=== PATIENT | male | born 1995 | race Caucasian/White ===

== ENCOUNTER 2016-12-22 22:31 | Emergency (ER) | payer OTHER ==
[~2016-12-22] VITALS: Ht 177.8 cm; Wt 96.7 kg
[2016-12-22 22:35] VITALS: TEMP 36.5; Ht 177.8 cm; Wt 96.7 kg
[2016-12-22] MEDS ORDERED: XYLOCAINE 1%/SOD BICARB 20 ML VIAL INFIL ONE (23:00)
[2016-12-22] MEDS ORDERED: CEFTRIAXONE SOD 350MG/ML 1 GM VIAL IM ONE (23:15)
[2016-12-22] MEDS ORDERED: BUPIVACAINE 0.5 % 5 MG/1 ML MPF 30ML VIAL INFIL ONE (23:15)
--- NOTE | 2016-12-22 23:17 | DIAGNOSTIC IMAGING REPORT ---
LEFT FIFTH FINGER 3 VIEWS HISTORY: left 5th finger laceration COMPARISON: None. FINDINGS: Soft tissue laceration at the distal tip of the left fifth finger. There is also a transverse fracture at the distal tuft of the left fifth finger. This demonstrates 3 mm of volar displacement and mild distraction. No dislocation. No radiopaque foreign bodies. IMPRESSION: Mildly displaced fracture at the distal tuft of the left fifth finger with an associated soft tissue laceration. Electronically signed by: Raul Guardado M.D. 12/22/2016 11:15 PM Dictated Date/Time: 12/22/2016 11:14 PM
[2016-12-22] MEDS ORDERED: CEPHALEXIN 500MG HOME PACK 1 EA BTL PO ONE (23:45)
[2016-12-22] MEDS ORDERED: NORCO 5/325MG HOME PACK PO ONE (23:45)
[2016-12-22] MEDS ORDERED: HYDR-5688 PO (23:50)
[2016-12-22] MEDS ORDERED: CEPH500C PO (23:50)
[2016-12-23 00:25] VITALS: BP 128/80; PULSE 98; O2SAT 99
--- NOTE | 2016-12-23 03:28 | EMERGENCY ROOM VISIT NOTE ---
History First contact with patient: 22:37 Chief Complaint: LACERATION/CUT (SUT/DERMABOND) Stated Complaint: FINGER TIP LAC PINKY Nursing Triage Summary: Pt states got 5th left finger pinched between lumbar and a metal bar. States tetanus is UTD. Happened approx 20 mins [employer]. History of Present Illness The patient is a 21 year old male who presents to the Emergency Room with complaints of injury to his left fifth finger at work approximately 20 minutes ago. The patient works at [employer] and states that he got his finger pinched between a large piece of wood and a metal bar. The patient was able to quickly free his finger and noticed a considerable laceration to his finger. The patient presents now for further evaluation. He states that he is up-to-date on his tetanus. He does have sensation to the very end of his fingertip. He does not report injury to his hand or elsewhere. There is slow bleeding. He rates his discomfort a 7/10. Review of Systems More than 10 systems were reviewed and otherwise negative with the exception of history of present illness. Past Medical/Surgical History No chronic medical disease Family History No pertinent family history Social History Smoking Status: Never Smoker Occupation Status: unemployed Current/Historical Medications Scheduled Cephalexin Monohydrate (Keflex), 500 MG PO TID Scheduled PRN Hydrocodone/Acetaminophen 5MG/325MG ([place] 5MG/325MG), 1-2 TABLET PO Q6 PRN for Pain Physical Exam Vital Signs Date Time Temp Pulse Resp B/P (MAP) Pulse Ox O2 Delivery O2 Flow Rate FiO2 12/23/16 00:25 98 18 128/80 99 12/22/16 22:35 36.5 100 18 130/85 99 Room Air Pain Rating (0-10): 0 Physical Exam VITALS: Vitals are noted on the nurse's note and reviewed by myself. Vital signs stable. GENERAL: Well-developed, well-nourished, white male, who is in no acute distress and resting comfortably. Patient is cooperative with the examination. HEART: Regular rate and rhythm without murmurs gallops or rubs. LUNGS: Clear to auscultation bilaterally without wheezes, rales or rhonchi. No retractions or accessory muscle use. MUSCULOSKELETAL: There is a laceration to the distal end of the left fifth finger. This measures approximately 2.5 cm in total length. The laceration is nearly circumferential with tissue intact along the lateral aspect. The patient does have sensation to the distal tip. The fingernail is not lacerated , however the laceration does run just underneath the distal end of the fingernail. The patient is able to flex and extend the finger. No other significant injury noted. Medical Decision & Procedures ER Provider Diagnostic Interpretation: LEFT FIFTH FINGER 3 VIEWS HISTORY: left 5th finger laceration COMPARISON: None. FINDINGS: Soft tissue laceration at the distal tip of the left fifth finger. There is also a transverse fracture at the distal tuft of the left fifth finger. This demonstrates 3 mm of volar displacement and mild distraction. No dislocation. No radiopaque foreign bodies. IMPRESSION: Mildly displaced fracture at the distal tuft of the left fifth finger with an associated soft tissue laceration. Medications Administered Medications (Trade) Dose Ordered Sig/[place] Route Start Time Stop Time Status Last Admin Dose Admin Ceftriaxone Sodium (Rocephin Im) 1,000 mg NOW ONCE IM 12/22/16 23:15 12/22/16 23:16 DC 12/23/16 00:20 1,000 MG Cephalexin Monohydrate (Keflex 500MG Home Pack) 1 homepack NOW ONCE PO 12/22/16 23:45 12/22/16 23:46 DC 12/23/16 00:20 1 HOMEPACK Acetaminophen/ Hydrocodone Bitart ([place] 5/325mg Home Pack) 1 homepack UD ONCE PO 12/22/16 23:45 12/22/16 23:46 DC 12/23/16 00:20 1 HOMEPACK Procedure Laceration repair. Patient elects to have their laceration repaired. Verbal consent was obtained to perform the procedure. There is an abundance of materials available for the procedure. Patient is not allergic to latex. Using sterile technique the wound was cleaned with Betadine. The area was sterilely draped. 5 ml of a 50:50 mixture of 0.5% Sensorcaine and 1% buffered lidocaine was used to anesthetize the left fifth finger in a digital block fashion. Once the patient was anesthetized, the wound was copiously irrigated under pressure with sterile saline. The wound was explored and there does appear to be bony exposure of the distal end of the left distal phalanx. The laceration was repaired using 6 simple interrupted 4-0 nylon sutures with the wound edges being well approximated. Hemostasis was achieved. The area was cleaned with sterile saline and dressed with bacitracin ointment and bandage. He was placed in a metal splint. Patient tolerated the procedure well without complications. Blood loss was negligible. ED Course Physical exam and history were performed. Nursing notes, EMR, and Medication List were personally reviewed. Patient appears to have suffered injury to his left fifth finger at work. This resulted in a distal laceration. X-ray was obtained and does show a distal tuft fracture. His laceration was repaired as above and he did tolerate the procedure well. His x-ray and physical exam findings are consistent with an open fracture. The patient was given 1 g IM Rocephin here in the department. He will be continued on a course of Keflex and given a short prescription for Vicodin. Overall the patient appears stable for discharge home today. The patient will need to follow with orthopedics regarding his injury. This did occur at work, and I highly recommended that he follow with Workmen's Compensation. I did provide the information for the on-call orthopedist as a courtesy. The patient will be given a note to return to work at the discretion of orthopedics. The patient was otherwise invited back to the ER with any new, worsening, or concerning symptoms. The chart was completed utilizing [email or web address] Speech Voice Recognition Software. Grammatical errors, random word insertions, pronoun errors, and incomplete sentences are an occasional consequence of this system due to software limitations, ambient noise, and hardware issues. Any formal questions or concerns about the content, text, or information contained within the body of this dictation should be directly addressed to the provider for clarification. . Medical Decision Differential diagnosis includes, but is not limited to: Sprain, strain, fracture , dislocation, subluxation, contusion, infection, foreign body, laceration, and others Impression Primary Impression: Open fracture of finger of left hand Additional Impression: Finger laceration Departure Information Dispostion Home / Self-Care Condition GOOD Prescriptions Hydrocodone/Acetaminophen 5MG/325MG ([place] 5MG/325MG) Tab 1-2 TABLET PO Q6 Y for Pain, #15 TAB For Initial Treatment Prov: Joel Osorio PA-C 12/22/16 Cephalexin Monohydrate (Keflex) 500 Mg Cap 500 MG PO TID for 10 Days, #30 CAP Prov: Joel Osorio PA-C 12/22/16 Referrals Jim Avendaño M.D. Forms HOME CARE DOCUMENTATION FORM, Work Instructions, Additional Instructions: Patient was seen and evaluated today in the emergency department fo medical care. Patient may not return to work until cleared by Workman compensation orthopedics. IMPORTANT VISIT INFORMATION Patient Instructions [facility], ED Fx Finger Open, ED Laceration All, ED Scar Tips to Minimize Additional Instructions You were seen and evaluated today on an emergency basis only. This is not a substitute for, or an effort to provide, complete comprehensive medical care. It is not possible to recognize and treat all injuries or illnesses in a single emergency department visit. For this reason it is recommended that you followup with Workmen's Compensation orthopedics next week for ongoing care and evaluation. We have provided information for Dr. Avendaño of [facility] as a courtesy. For baseline pain relief you may alternate ibuprofen and acetaminophen every 4 hours for pain control. Take 600 mg ibuprofen (Advil) and then 4 hours later take 1000 mg acetaminophen (Tylenol). Do not take more than 3000 mg acetaminophen in a single day. [place] (hydrocodone/acetaminophen) 5/325 mg every 6 hours as needed for worsening breakthrough pain. Do not drink or drive on [place]. This medication will likely make you tired. Do not take [place] and Tylenol at the same time as both contain acetaminophen. [place] may cause constipation. You may wish to take an [id number] stool softener like Colace if this occurs. Cephalexin(Keflex) 500mg: Take one pill 3 times daily for 10 days to prevent skin/bone infection. All antibiotics can cause diarrhea. If this occurs and you feel worse or it does not resolve in 1-2 days follow up with your doctor or return to the Emergency Department as this could be signs of serious underlying problems. Any medication can cause an allergic reaction, stop the pills immediately and return to the ER for rash, hives, breathing difficulties, or swelling. Keep wound clean and dry. Do not allow any crusting or dried blood to accumulate on sutures. If this occurs, use a mild soap/water on a Q-tip to clean the wound. Do not use Peroxide to clean the wound as this can delay healing Use an antibiotic ointment like Bacitracin for 3-4 days, then let wound dry. You may bathe and shower as normal, but DO NOT SOAK the wound. Suture removal in about 10 days with Orthopedics. Return sooner for any signs of infection, increasing redness, swelling, or drainage. You are welcome to return to the emergency department anytime with new, worsening, or concerning symptoms. Work Instructions Additional Work Instructions: Patient was seen and evaluated today in the emergency department for medical care. Patient may not return to work until cleared by Workmans compensation orthopedics. Problem Qualifiers
== END 2016-12-23 00:25 | disposition home or self-care (01) ==
LOC: C.EDB 22:35 → C.EDA 12-23 00:25
DX: S62.637B Displaced fracture of distal phalanx of left little finger, initial encounter for open fracture (principal); S61.217A Laceration without foreign body of left little finger without damage to nail, initial encounter; W23.1XXA Caught, crushed, jammed, or pinched between stationary objects, initial encounter; Y92.59 Other trade areas as the place of occurrence of the external cause; Y99.0 Civilian activity done for income or pay